=== PATIENT | female | born 1940 | race Caucasian/White ===

== ENCOUNTER 2021-04-06 11:14 | Outpatient (CLI) | payer BC | END 2021-04-06 11:15 | disposition home or self-care (01) | LOC: CSHMRI 11:14 | PROVIDERS: ATTEND Surgery | DX: G93.9 Disorder of brain, unspecified (principal); I63.81 Other cerebral infarction due to occlusion or stenosis of small artery; R90.82 White matter disease, unspecified | CPT/HCPCS: 70553 ==

== ENCOUNTER 2021-07-27 11:26 | Outpatient (CLI) | payer BC | END 2021-07-27 11:27 | disposition home or self-care (01) | LOC: CSHMAMMO 11:26 | PROVIDERS: ATTEND Internal Medicine Rheumatology | DX: M81.0 Age-related osteoporosis without current pathological fracture (principal); M85.851 Other specified disorders of bone density and structure, right thigh | CPT/HCPCS: 77080 ==

== ENCOUNTER 2022-05-04 08:53 | Outpatient (CLI) | payer BC ==
[2022-05-04] MEDS ORDERED: Magnevist 469MG/ML 20 ML VIAL ONE (13:48)
== END 2022-05-04 08:54 | disposition home or self-care (01) ==
LOC: CSHMRI 08:53
PROVIDERS: ATTEND Surgery
DX: G93.9 Disorder of brain, unspecified (principal); G93.89 Other specified disorders of brain; Z86.73 Personal history of transient ischemic attack (TIA), and cerebral infarction without residual deficits; R90.82 White matter disease, unspecified
CPT/HCPCS: 70553

== ENCOUNTER 2023-11-13 13:47 | Outpatient (CLI) | payer BC | END 2023-11-13 13:48 | disposition home or self-care (01) | LOC: CSHMRI 13:47 | PROVIDERS: ATTEND Family Medicine | DX: G93.0 Cerebral cysts (principal); R90.82 White matter disease, unspecified; Z86.73 Personal history of transient ischemic attack (TIA), and cerebral infarction without residual deficits | CPT/HCPCS: 70551 ==